=== PATIENT | female | born 1955 | race Caucasian/White ===

== ENCOUNTER → 2017-03-23 | Outpatient (CLI) | payer OTHER | END | disposition home or self-care (01) | LOC: LAB.O 07:48 | PROVIDERS: ATTEND Urology | DX: R31.0 Gross hematuria (principal) ==

== ENCOUNTER → 2017-11-29 | Outpatient (CLI) | payer OTHER | LOC: GMAL 11:04 | PROVIDERS: ATTEND Family Medicine | DX: Z00.01 Encounter for general adult medical examination with abnormal findings (principal) ==

== ENCOUNTER → 2020-04-24 | Outpatient (CLI) | payer OTHER | LOC: GMAL 12:35 | PROVIDERS: ATTEND Family Medicine | DX: R39.15 Urgency of urination (principal) ==